=== PATIENT | male | born 1965 | race Caucasian/White ===

== ENCOUNTER 2018-01-25 21:00 | Emergency (ER) | payer OTHER, BC ==
[2018-01-25 21:32] LABS: ADD MAN DIFF? NO
[2018-01-25 21:34] LABS: BASOPHIL # 0.1 10^3/ul (0.0-0.1); EOSINOPHILS # 0.1 10^3/ul (0.0-0.5); EOSINOPHILS % 1.5 % (0.0-7.0); HEMATOCRIT 41.5 % (42.0-52.0); HEMOGLOBIN 13.6 g/dl (14.0-18.0); LYMPHOCYTES # 2.2 10^3/ul (0.8-2.9); LYMPHOCYTES % 46.8 % (15.0-51.0); MEAN CORPUSCULAR HEMOGLOBIN 30.2 pg (29.0-33.0); MEAN CORPUSCULAR HGB CONC 32.8 g/dl (32.0-37.0); MEAN CORPUSCULAR VOLUME 92.2 fl (82.0-101.0); MEAN PLATELET VOLUME 10.9 fl (7.4-10.4); MONOCYTE # 0.5 10^3/ul (0.3-0.9); MONOCYTES % 10.9 % (0.0-11.0); NEUTROPHIL # 1.9 10^3/ul (1.6-7.5); NEUTROPHILS % 39.8 % (39.0-77.0); PLATELET COUNT 199 10^3/UL (140-415); RED CELL DISTRIBUTION WIDTH 12.2 % (11.5-14.5)
[2018-01-25 21:34] LABS: WHITE BLOOD COUNT 4.8 10^3/ul (4.8-10.8)
[2018-01-25] MEDS: ASPIRIN 81 MG TAB PO (21:39)
[2018-01-25 21:58] LABS: ANION GAP 10 (5-13); BLOOD UREA NITROGEN 20 mg/dl (7-20); CALCIUM 9.6 mg/dl (8.4-10.2); CARBON DIOXIDE 23 mmol/L (21-31); CHLORIDE 108 mmol/L (97-110); CREATININE 1.45 mg/dl (0.61-1.24); Estimated GFR 51 mL/min (>60); GLUCOSE 82 mg/dl (70-220); POTASSIUM 4.5 mmol/L (3.5-5.1); SODIUM 141 mmol/L (135-144)
[2018-01-25 22:09] LABS: TROPONIN-I < 0.012 ng/ml (0.000-0.120)
== END 2018-01-25 23:27 | disposition left against medical advice (07) ==
LOC: E/R 21:00
DX: R07.9 Chest pain, unspecified (principal); I10 Essential (primary) hypertension; Z85.810 Personal history of malignant neoplasm of tongue
CPT/HCPCS: 36415; 71045; 80048; 84484; 85025; 99285-25

== ENCOUNTER 2018-05-17 07:39 | Emergency (ER) | payer OTHER | END 2018-05-17 08:26 | disposition home or self-care (01) | LOC: FTE 07:39 | DX: H92.02 Otalgia, left ear (principal); I10 Essential (primary) hypertension | CPT/HCPCS: 99282 ==